=== PATIENT | male | born 1985 | race Caucasian/White ===

== ENCOUNTER 2024-07-31 12:06 | Emergency (ER) | payer MEDICAID | END 2024-07-31 17:17 | disposition left against medical advice (07) | LOC: ER 12:06 | DX: R05.9 Cough, unspecified (principal); Z53.21 Procedure and treatment not carried out due to patient leaving prior to being seen by health care provider ==

== ENCOUNTER 2025-03-20 14:23 | Emergency (ER) | payer MEDICAID ==
[~2025-03-20] VITALS: Ht 188 cm; Wt 98.0 kg
[2025-03-20 15:00] VITALS: TEMP 98.5; O2SAT 97
--- NOTE | 2025-03-20 15:25 | Physician Documentation ---
History of Present Illness ~ Chief Complaint: Hypotension Stated Complaint: LOW BLOOD PRESSURE Time Seen by MD: 15:22 OK to notify your PCP?: Yes Source: patient, RN/MD HPI Patient is seen today with complaints of low blood pressure and feeling weak. 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 Patient denies any fevers or chills or significant abdominal pain. Patient denies any dysuria or chest pain or shortness of breath or nausea, vomiting, diarrhea. Patient has no other concern or complaint at this time. Medication Reconciliation Allergies: Coded Allergies: clindamycin (Unverified Allergy, Mild, 09/20/16) Review of Systems Constitutional: Denies: chills, fever, weakness Eyes: Denies: pain, blurred vision ENT: Denies: ear pain, nose pain, throat pain, mouth pain Respiratory: Denies: cough, shortness of breath Cardiovascular: Denies: chest pain, palpitations Gastrointestinal: Denies: abdominal pain, nausea, vomiting Genitourinary: Denies: burning, dysuria Male Genitalia: Denies: penile discharge, testicular pain Neurological: Denies: headache, dizziness Musculoskeletal: Denies: pain, swelling Integumentary: Denies: rash, lesions Allergic/Immunologic: Denies: hives, itching Hematologic/Lymphatic: Denies: no symptoms reported Psychiatric: Denies: depression, anxiety Physical Exam Vital Signs: Temperature: 99.1, Heart Rate: 116, Respiratory Rate: 16, BP: 117/58, Pulse Oximetry: 100, Weight: 98.000 Oxygen Flow Rate: 0 Physical Exam General: Awake and Alert, no acute distress. HEENT: Conjunctiva pink, Sclera clear, Mucus Membranes moist. Neck: Supple without masses and tenderness. Resp: Unlabored. Lungs clear to auscultation bilaterally. Heart: Regular Rate and rhythm, normal S1 and S2 without murmur, rub or gallop. Abdomen: On exam the patient has no significant tenderness to palpation of the abdomen, the abdomen is soft, nondistended, normoactive bowel sounds, no guarding or rebound tenderness. Extremities: No cyanosis,clubbing or edema. Skin: Warm and Dry. Progress Results/Orders Results/Orders Orders - NOHEMI COLON PAC Culture Blood (03/20/25 15:23) Chest,Single View (03/20/25 ) Saline Lock (03/20/25 ) Page Hospitalist (03/20/25 15:59) Fill Out Med Reconciliation (03/20/25 15:59) Completed Orders - NOHEMI COLON PAC Electrocardiogram (03/20/25 15:23) Cbc/Diff (03/20/25 15:23) MG (03/20/25 15:23) Chest,Single View (03/20/25 ) Procalcitonin (03/20/25 15:23) BMP (03/20/25 15:23) Lacticsepsis (03/20/25 15:23) Normal Saline 1000ml (Sodium Chloride 10 (03/20/25 15:24) Normal Saline 1000ml (Sodium Chloride 10 (03/20/25 15:24) Man Diff (03/20/25 15:21) Vital Signs 03/20/25 03/20/25 03/20/25 14:26 15:00 15:00 Temp 99.1 98.5 Pulse 116 121 Resp 16 12 16 B/P (MAP) 117/58 104/65 (78) Pulse Ox 100 97 O2 Flow Rate 0 0 Laboratory Tests Test 03/20/25 15:21 White Blood Count 14.0 H Red Blood Count 3.04 L Hemoglobin 9.2 L Hematocrit 26.9 L Mean Corpuscular Volume 88.6 Mean Corpuscular Hemoglobin 30.1 Mean Corpuscular Hemoglobin Concent 34.0 Red Cell Distribution Width 13.0 Platelet Count 287 Mean Platelet Volume 6.3 L Neutrophils (%) (Auto) 76.2 H Lymphocytes (%) (Auto) 7.3 L Monocytes (%) (Auto) 15.0 H Eosinophils (%) (Auto) 1.0 Basophils (%) (Auto) 0.5 Neutrophils # (Auto) 10.6 H Lymphocytes # (Auto) 1.0 L Monocytes # (Auto) 2.1 H Eosinophils # (Auto) 0.1 Basophils # (Auto) 0.1 CBC Comment Differential Total Cells Counted 100 Neutrophils % (Manual) 81.0 H Lymphocytes % (Manual) 7.0 L Monocytes % (Manual) 11.0 Eosinophils % (Manual) 1.0 Platelet Estimate Normal Red Blood Cell Morphology Normal Basophilic Stippling Sodium Level 135 Potassium Level 3.7 Chloride Level 99 Carbon Dioxide Level 24.9 Anion Gap 11 Blood Urea Nitrogen 12 Creatinine 1.07 Estimated GFR/1.73 m2 77 BUN/Creatinine Ratio 11.2 Glucose Level 104 Lactic Acid Level 1.5 Calcium Level 8.8 Magnesium Level 2.0 Albumin 3.1 L Procalcitonin 0.16 Chemistry Comments Microbiology Date/Time Source Procedure Growth Status 03/20/25 16:10 Blood Arm Left Blood Culture - Preliminary NEGATIVE (LESS THAN 24 HOURS) Resulted EKG/XRAY/CT/US/VASC/MRI Chest X-Ray : Additional Comments Chest x-ray interpreted by myself today shows no sign of large effusion, no large infiltrate, normal mediastinum. DIAGNOSTIC RADIOLOGY Patient: ANGEL CIFUENTES Medical Record: [id number] [facility] : 1985, Age: 39 Sex: Male Location: ER Patient Status: [facility] ER Service Date/Time: 03/20/25/ 0000 Ordering Physician: NOHEMI COLON PAC Exam: CHEST,SINGLE VIEW EXAM: DI CHEST,SINGLE VIEW TECHNIQUE: Single frontal chest radiograph CLINICAL HISTORY: SEPSIS COMPARISON: None Findings/Impression: Frontal chest radiograph demonstrates no acute osseous or superficial soft tissue abnormalities. The trachea is midline. The cardiac silhouette and mediastinum are within normal limits. No pneumothorax, pleural effusions, or consolidations. Electronically Signed by:NAVJOT MENSAH DO Date & Time: 03/20/251611 Dictated by: NAVJOT MENSAH DO Dictation date and time: 03/20/25 161 Primary Care Provider: NO PRIMARY CARE PROVIDER cc: NOHEMI COLON PAC ~ Medical Decision Making Findings Patient is seen today with complaints of low blood pressure and feeling weak. 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 Patient denies any fevers or chills or significant abdominal pain. Patient denies any dysuria or chest pain or shortness of breath or nausea, vomiting, diarrhea. Patient has no other concern or complaint at this time. Patient was given 2 L of fluid and hospitalist was consulted and sepsis protocol initiated. Patient will be admitted for further eval and treatment. Departure Disposition: ADMITTED INPATIENT Admitted to Inpatient Unit: to hospitalist Impression: Primary Impression: Hypotension Qualified Codes: I95.9 - Hypotension, unspecified Condition: Stable Discharge Instructions: Hypotension, [id number] Additional Instructions: Patient was given L of fluid and hospitalist was consulted and sepsis protocol initiated. Patient will be admitted for further eval and treatment. Referrals: NO PRIMARY CARE PROVIDER (PCP) Signature Scribe Signature: No scribe Attestation: No scribe NOHEMI COLON PAC Mar 20, 2025 15:25
[2025-03-20] MEDS: normal saline 1000ml 1,000 ML IV STA ×2 (15:31)
--- NOTE | 2025-03-20 15:35 | ELECTROCARDIOGRAPH REPORT ---
[facility] Test Date: 2025-03-20 Test Time: 15:33:28 Pat Name: ANGEL CIFUENTES Department: [facility]- Patient ID: [facility]-[id number] Room: Gender: M [employer]: : 1985 Requested By: NOHEMI COLON Order Number: [id number] Reading MD: Measurements Intervals [place] Rate: 109 P: 47 W[place]: 161 QRS: 46 QRSD: 106 T: 18 QT: 322 QTc: 434 Interpretive Statements Sinus tachycardia Abnormal inferior Q waves Please click the below link to view image of tracing.
[2025-03-20 15:36] LABS: BASOPHILS # (AUTO) 0.1 X10'3 (0-0.2); BASOPHILS % (AUTO) 0.5 % (0-1); EOSINOPHILS # (AUTO) 0.1 X10'3 (0-0.9); HEMATOCRIT 26.9 % (42.0-52.0); HEMOGLOBIN 9.2 g/dl (14.0-17.9); LYMPHOCYTES % (AUTO) 7.3 % (21-51); MEAN CORPUSCULAR HEMOGLOBIN 30.1 PG (27.0-31.0); MEAN CORPUSCULAR VOLUME 88.6 FL (78-98); MEAN PLATELET VOLUME 6.3 FL (7.4-10.4); MONOCYTES # (AUTO) 2.1 X10'3 (0-0.9); NEUTROPHILS # (AUTO) 10.6 X10'3 (1.8-7.7); NEUTROPHILS % (AUTO) 76.2 % (42-75); PLATELET COUNT 287 X10'3 (140-440); RED BLOOD COUNT 3.04 X10'6 (4.70-6.10)
[2025-03-20 15:46] LABS: ALBUMIN 3.1 G/DL (3.4-5.0); ANION GAP 11 (8-16); BLOOD UREA NITROGEN 12 MG/DL (7-18); BUN/CREATININE RATIO 11.2 (10.0-20.0); CALCIUM 8.8 MG/DL (8.5-10.1); CHLORIDE 99 MMOL/L (99-107); CREATININE 1.07 MG/DL (0.60-1.10); GLUCOSE 104 MG/DL (70-104); POTASSIUM 3.7 MMOL/L (3.5-5.1); SODIUM 135 MMOL/L (135-145); TOTAL CARBON DIOXIDE 24.9 MMOL/L (24-32); eCRCL 108 ML/MIN; eGFR 77 ML/MIN
--- NOTE | 2025-03-20 16:14 | RADIOLOGY REPORT ---
EXAM: DI CHEST,SINGLE VIEW TECHNIQUE: Single frontal chest radiograph CLINICAL HISTORY: SEPSIS COMPARISON: None Findings/Impression: Frontal chest radiograph demonstrates no acute osseous or superficial soft tissue abnormalities. The trachea is midline. The cardiac silhouette and mediastinum are within normal limits. No pneumothorax, pleural effusions, or consolidations.
--- NOTE | 2025-03-20 16:19 | HISTORY AND PHYSICAL ---
History & Physical Providers to CC ~ History of Present Illness Reason for Admit\Complaint: Hypotension History of Present Illness History of present illness patient is a 39-year-old alcoholic gentleman with a history of hypertension who was in [facility] for five days couple of days ago but unfortunately patient has no ability to describe what has happened to him except that he was bleeding he keeps pointing to his right groin which looks like maybe an angiogram was done but otherwise looks within normal limits there is no active site of bleeding noted but he is anemic and I am not sure if this is from an upper or lower GI bleed he had an EGD or colonoscopy or any other procedures done at [facility] I have requested the medical records from [facility] to help in the treatment of this patient as this patient is unable to give me any history at all. Still very shaky he thinks he is going through withdrawals from alcohol even though I explained to him that if he did not drink between [facility]'s discharge and our admission then the DTs would have happened while he was at [facility]. Even that he is not sure about but he says he did not drink he has a smoked he has not done methamphetamines in the last 7-8 days. Unfortunately in our ER we have not done a tox screen on him what with that kind of an extensive history that is where I am starting my workup. He states that he came to the ER because [facility] continue to take his blood pressure medications he noted his blood pressure to be low but he can not tell me how low except he knows his diastolic was about 40. He denies any syncope near-syncope but he thinks his blood pressure was low and he became worried he came to the ER and he is being admitted for monitoring of this. Allergies: Coded Allergies: clindamycin (Unverified Allergy, Mild, 09/20/16) ROS ROS Review of systems negative for all 10 systems reviewed because patient has no recollection of what is going on with him Exam Vitals: Vital Signs Date Time Temp Pulse Resp B/P (MAP) Pulse Ox O2 Delivery O2 Flow Rate FiO2 03/20/25 15:00 98.5 121 12 104/65 (78) 97 0 General: Patient is alert and oriented x2 pleasantly confused in no acute distress HEENT normocephalic nontraumatic head PERRLA. EOMI. Conjunctiva are pink sclerae are anicteric CVS first and second heart sounds are and sinus tachycardia there is no murmurs gallops or rubs Respiratory system is clear to auscultate bilaterally no rales rhonchi crackles or wheezing Abdomen is soft obese bowel sounds are positive nontender nondistended no masses appreciated no hepatosplenomegaly Extremities no clubbing cyanosis or edema Neurological exam no focal deficits Rectal deferred Skin is intact Diagnostic Data Last Recorded Lab Results: 03/20/25 1521 03/20/25 1521 Additional Plan Assessment and plan Questionable hypotension with history of hypertension Monitor blood pressure which has not been hypotensive in the ER Hold BP meds IV fluids History of ETOH abuse Replace multivitamins folic acid and thiamine Check tox screen Monitor for DTs History of methamphetamine abuse Gets substance abuse navigator consult Anemia Check micro and macro panel Check occult cards Monitor H&H Start Protonix ? Questionable angio in [facility] get medical records Start the patient on DVT prophylaxis with the SCDs Date of Service: Mar 20, 2025 Billing Provider: IRMA WEINER MD Common Visit Codes: [id number] INP/OBS CARE (HIGH) IRMA WEINER MD Mar 20, 2025 16:19
[2025-03-20 16:27] LABS: PLATELET ESTIMATE NORMAL; TOTAL CELLS COUNTED 100
[2025-03-20] MEDS ORDERED: mag hydrox/Alum hydrox/simeth 30ml oral suspension PO PRN (17:10)
[2025-03-20] MEDS ORDERED: potassium Cl 40MEQ/1/2NS 520ml 520 ML IV PRN (17:10)
[2025-03-20] MEDS ORDERED: magnesium sulf-water 4G/100mL 100 ML IV PRN (17:10)
[2025-03-20] MEDS ORDERED: potassium Cl 20 mEq SR tablet PO PRN ×2 (17:10)
[2025-03-20] MEDS ORDERED: ondansetron/PF 4mg/2ml inj IV PRN (17:10)
[2025-03-20] MEDS ORDERED: HYDROcodone/acetaminophen 5mg/325mg tablet PO PRN (17:10)
[2025-03-20] MEDS ORDERED: magnesium Cl slow-release 64mg tablet PO PRN (17:10)
[2025-03-20] MEDS ORDERED: magnesium sulf-water 2g/50mL 50 ML IV PRN (17:10)
[2025-03-20] MEDS ORDERED: acetaminophen 325mg tablet PO PRN (17:10)
[2025-03-20] MEDS ORDERED: magnesium hydroxide 30ml (MOM) UD suspension PO PRN (17:10)
[2025-03-20 17:35] VITALS: BP 114/72; PULSE 114; RESP 22
[2025-03-20] MEDS ORDERED: K and/or MAG REPLACEMENT MC SCH (20:00)
[2025-03-20] MEDS ORDERED: docusate sod 100mg capsule PO SCH (20:00)
[2025-03-21] MEDS ORDERED: pantoprazole 40mg Tablet.DR PO SCH (07:30)
== END 2025-03-20 17:49 | disposition left against medical advice (07) ==
LOC: ER 14:23 → UNDOADMIN 17:13 → ED HOLD 17:13
DX: I95.9 Hypotension, unspecified (principal); F17.200 Nicotine dependence, unspecified, uncomplicated; I10 Essential (primary) hypertension; D64.9 Anemia, unspecified; Z88.1 Allergy status to other antibiotic agents
CPT/HCPCS: 36415; 71045; 80048; 83605; 83735; 84145; 85025; 87040; 93005; 96360; 99285; J7030; 82728; 85007; 96361

== ENCOUNTER 2025-07-03 11:39 | Outpatient (CLI) | payer MEDICAID ==
[~2025-07-03 11:39] MED LIST: NO HOME MEDS
--- NOTE | 2025-07-03 14:28 | RADIOLOGY REPORT ---
PROCEDURE: MR MRI LUMBAR SPINE INDICATION: LOW BACK PAIN, UNSPECIFIED Exam Date: 07/03/2025 01:01 PM COMPARISON: None TECHNIQUE: MRI lumbar spine without intravenous contrast. FINDINGS: Intervertebral disc height is maintained. Alignment: Grade 1 anterolisthesis of L5 on S1. Vertebrae: Vertebral body height is well maintained without evidence of a recent compression fracture. Conus: Conus medullaris terminates at the L1 level. Following axial levels detailed below: T12-L1: The disc configuration is normal. No spinal canal or neural foraminal stenosis. The facet joints are normal. L1-2: The disc configuration is normal. No spinal canal or neural foraminal stenosis. The facet joints are normal. L2-3: The disc configuration is normal. No spinal canal or neural foraminal stenosis. Facet arthrosis. L3-4: The disc configuration is normal. No spinal canal or neural foraminal stenosis. The facet joints are normal. L4-5: Disc desiccation. Mild disc height loss. Disc bulge with superimposed right subarticular disc protrusion measured 4.75 mm in radial dimension. Mild spinal canal stenosis. Mild right subarticular zone stenosis. Mild right foraminal stenosis. Facet arthrosis. L5-S1: Grade 1 anterolisthesis of L5 on S1 by 2.7 mm. The disc configuration is normal. No spinal canal or neural foraminal stenosis. Facet arthrosis. IMPRESSION: Mild spinal canal stenosis at L4-L5 level. Mild right subarticular zone stenosis at L4-L5 level. Mild right foraminal stenosis at L4-L5 level.
[2025-07-03] MEDS ORDERED: GADOTERATE MEGLUMINE 7.5 MMOL/15 ML VIAL IV ONE (15:47)
== END 2025-07-03 23:59 | disposition home or self-care (01) ==
LOC: MRI 11:39
PROVIDERS: ATTEND Nurse Practitioner Family
DX: M47.817 Spondylosis without myelopathy or radiculopathy, lumbosacral region (principal); M43.17 Spondylolisthesis, lumbosacral region; M48.07 Spinal stenosis, lumbosacral region; M54.50 Low back pain, unspecified
CPT/HCPCS: 72158; A9575

== ENCOUNTER 2025-09-10 13:31 | Outpatient (CLI) | payer MEDICAID ==
[~2025-09-10 13:31] MED LIST changes: +iohexol 300mg/ml 100ml inj. ONE
--- NOTE | 2025-09-10 15:00 | RADIOLOGY REPORT ---
EXAM: CT CT ABDOMEN PELVIS W/WO IV CONTRAST History: LOW BACK PAIN, UNSPECIFIED Comparison Study: CT CT ABDOMEN PELVIS W/ IV CONTRAST on DOS: 03/29/25, CT ABDOMEN+PELVIS W IV CON on DOS: 03/15/25 Exam Date: 09/10/2025 01:50 PM Radiation Dose Information: CT Dose: CTDI volume is 50 mGy. Dose-length product is 2739 mGy*cm TECHNIQUE: Multislice data acquisition was obtained through the abdomen and pelvis. The data set was subsequently reconstructed into axial images. Images were reviewed on a work station using a combination of axial and multiplanar using a variety of window levels and settings. Images obtained before and after IV contrast administration. FINDINGS: Lower chest: Clear. Liver: Unremarkable Biliary system: Unremarkable Spleen: Unremarkable Pancreas: Unremarkable. Adrenals: Unremarkable. Kidneys and ureters: Normal renal enhancement. No hydronephrosis. Small nonobstructing calculus in the left kidney. Bowel: No obstruction. Normal appendix. Scattered colonic diverticula. Bladder: Unremarkable Reproductive organs: No abnormal mass. Lymph nodes: Unremarkable. Peritoneum: Significant interval decrease size of the left upper quadrant cystic mass /fluid collection adjacent to the duodenal group measuring 6.6 x 5.8 cm, previously 11.7 x 8.9 cm. The mass demonstrates peripheral wall thickening and internal hypodensity without significant internal enhancement. The mass also appears significantly more Hypodense from prior. Significant improvement in the adjacent surrounding fat stranding. Vessels: Patent major intra-abdominal vasculature. Sequela of prior GDA embolization. Bones and soft tissue: No aggressive osseous lesion IMPRESSION: Significant interval decrease in size of upper abdominal cystic mass/collection. Recommend continued follow-up to ensure resolution.
== END 2025-09-10 23:59 | disposition home or self-care (01) ==
LOC: RAD 13:31
PROVIDERS: ATTEND Nurse Practitioner Family
DX: M54.50 Low back pain, unspecified (principal)
CPT/HCPCS: 74178; Q9967